=== PATIENT | male | born 1990 | race Caucasian/White ===

== ENCOUNTER 2021-04-09 07:18 | Emergency (ER) | payer MEDICAID, SELFPAY ==
[2021-04-09 07:25] VITALS: BP 136/81; PULSE 70; RESP 18; TEMP 36.8; O2SAT 99; BMI 31.8
--- NOTE | 2021-04-09 07:41 | ED_ITS ---
HPI - General Adult General: Chief complaint: General Medical Stated complaint: Swelling in eye, gum pain Time Seen by Provider: 04/09/21 07:19 History of Present Illness: HPI narrative: Patient is a 30-year-old male who comes to the ED with dental pain and swelling. Symptoms have been going on for the past couple days. He has some dental pain that he describes as mild on the left lower jaw around tooth #17. He has some swelling in his face that is also went up into his left periorbital region. Denies any trouble swallowing or breathing. He does not currently have a dentist but is calling around and trying to get an appointment set up. Associated symptoms: Deny chest pain, dyspnea, headache(s), nausea, rash, palpitations or vomiting Review of Systems Const: Denies: fever(s), chills or fatigue Eyes: Denies: change in vision or eye discomfort ENMT: Reports: dental pain; Denies: throat pain, odynophagia, nasal discharge or nasal congestion Card: Denies: chest pain, palpitations, edema, swelling of feet/ankles, dyspnea on exertion or orthopnea Resp: Denies: dyspnea, productive cough or non-productive cough GI: Denies: abdominal pain, nausea, vomiting, diarrhea, constipation or hemat ochezia : Denies: flank pain, difficulty urinating, dysuria or hematuria Musc: Denies: neck pain, back pain or extremity swelling Skin/Breast: Denies: rash or new lesions Neuro: Denies: headache(s), numbness in extremities or weakness in extremities Physical Exam Const: COMMON NORMALS: no acute distress, patient oriented x3 and alert GENERAL APPEARANCE: cooperative and comfortable HENMT: COMMON NORMALS: normocephalic HEAD & SCALP: normocephalic MOUTH: Normal oral and palatal mucosa present TEETH & GINGIVA: Yes caries and Yes gingiva abnormal edematous (Gingival edema around tooth #17) THROAT: posterior oropharynx normal and uvula midline Eye: PERIORBITAL: periorbital findings abnormal positive left periorbital swelling Neck/C-Spine: COMMON NORMALS: supple GENERAL: Yes normal visual inspection Resp: COMMON NORMALS: normal respiratory effort, No retractions, No use of accessory muscles and clear to auscultation bilaterally AUSCULTATION: clear to auscultation bilaterally Cardio: COMMON NORMALS: regular rate, regular rhythm, S1 normal heart sound present, S2 normal heart sound present, No gallops present (Cardio), No clicks present (Cardio), No murmurs present (Cardio) and Peripheral pulses 2+ throughout RATE: regular rate RHYTHM: regular rhythm HEART SOUNDS: S1 normal heart sound present and S2 normal heart sound present PERIPHERAL PULSES: Peripheral pulses 2+ throughout GI: COMMON NORMALS: Normal to inspection, nondistended, normoactive bowel sounds present, Soft to palpation, non-tender and no masses PALPATION: Yes Soft to palpation : COMMON NORMALS: Yes no CVA tenderness BLADDER/KIDNEY EXAM: Yes no CVA tenderness Back/Pelvis: COMMON NORMALS: no CVA tenderness Extremity: COMMON NORMALS: normal to inspection Neuro: COMMON NORMALS: patient oriented x3 and moves all extremities SENSORIUM/ORIENTATION: Yes alert Skin: GENERAL SKIN EXAM: dry skin Course Vital Signs: Vital signs: Vital Signs Temperature 98.2 F 04/09/21 07:25 Pulse Rate 70 04/09/21 07:25 Respiratory Rate 18 04/09/21 07:25 Blood Pressure 136/81 04/09/21 07:25 Pulse Oximetry 99 04/09/21 07:25 MDM - General Adult MDM Narrative: Medical decision making narrative: Patient is a 30-year-old male comes to the ED with dental pain and swelling. He also has some left facial swelling. Vitals are stable. His pain is mild. Patient has some dental caries around tooth #17 with some associated gingival edema. Patient was discharged home with a prescription for clindamycin and a Medrol Dosepak to help with the swelling. Contact the dentist set up an appointment with them for further evaluation. Return to ED precautions given. Patient understood agree with plan. Discharge Plan Discharge Patient Disposition: Home Clinical Impression: Dental caries Condition: Stable Prescriptions: New clindamycin HCl 150 mg capsule 300 mg PO QID 7 Days Qty: 56 RF: 0 Medrol (Ham) 4 mg tablets,dose pack See Rx Instructions .ROUTE .COMPLEX Qty: 21 RF: 0 Discharge Orders: Discharge ED (Routine); Ordered 04/09/21 Ordered By: Carlos Moraes Discharge Diet: Regular Discharge Activity: Resume usual activity Patient Instructions: Dental Caries (ED) Activity Restrictions/Additional Instructions: Contact your dentist and set up an appoint with them for further evaluation. take medications as prescribed. Start taking steroid Dosepak tomorrow, but start antibiotic today. Return to the ER or your medical provider if condition worsens. Please read and understand discharge instructions. Thank you for choosing [facility] [place] for your healthcare needs today. Seven tiwari realize this is an emergency room and that we are providing you with a medical screening exam and this may not be complete and all inclusive of all the testing and or work up that you may need to determine your ailment or severity of your illness. It is very important that you follow up as instructed or that you return to the Emergency Department should you have concerns or if your condition changes or worsens in any way. Coding Level of Care Code ED Employment Assistant for Shirin Johns Exam Comprehensive
[2021-04-09] MEDS: dexamethasone 10 mg/mL INJ IM (08:02)
== END 2021-04-09 08:09 | disposition home or self-care (01) ==
PROVIDERS: Emergency Provider Physician Assistant
DX: K02.9 Dental caries, unspecified (principal)
CPT/HCPCS: 96372; 99283; J1100

== ENCOUNTER 2021-11-30 15:27 | Emergency (ER) | payer MEDICAID, SELFPAY ==
[2021-11-30 15:51] VITALS: BP 136/78; PULSE 71; RESP 18; TEMP 36.8; O2SAT 98; BMI 34.2
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
[2021-11-30] MEDS: acetaminophen 500 mg Tablet PO (16:15)
[2021-11-30] MEDS: tetanus-dipt-pertussis 0.5 mL SDV IM (16:17)
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
[2021-11-30] MEDS: lidocaine 1% INJ 20 mL 5 ML INJECTION (16:49)
== END 2021-11-30 18:02 | disposition home or self-care (01) ==
PROVIDERS: Emergency Provider Emergency Medicine; PCP Family Medicine
DX: S01.01XA Laceration without foreign body of scalp, initial encounter (principal); R51.9 Headache, unspecified; F17.210 Nicotine dependence, cigarettes, uncomplicated; W20.8XXA Other cause of strike by thrown, projected or falling object, initial encounter; Z23 Encounter for immunization
CPT/HCPCS: 12002; 70450; 90471; 90715; 99283

== ENCOUNTER 2021-12-10 21:31 | Emergency (ER) | payer MEDICAID, SELFPAY ==
--- NOTE | 2021-12-10 21:37 | W.ED.GENADLT ---
[facility] - General Adult General: Stated complaint: needs jesse removed Time Seen by Provider: 12/10/21 21:33 Source: patient Mode of arrival: ambulatory Limitations: no limitations History of Present Illness: 31-year-old male who had jesse placed 10 days ago to his scalp he had a laceration to his scalp required for staple he states been doing well the wound is healed he is here for staple removal he denies any headache denies any worsening proving factors. Denies any drainage from the site or fevers Associated symptoms: Reports headache(s); Deny chest pain or dyspnea Review of Systems Const: Denies: fever(s) Eyes: Denies: blurry vision or eye discomfort ENMT: Denies: mouth pain Card: Denies: chest pain Resp: Denies: dyspnea GI: Denies: abdominal pain Musc: Denies: neck pain or back pain Skin/Breast: Denies: pruritus or erythema Neuro: Reports: headache(s) Psych: Denies: depression Tayo/Lymph: Denies: easy bruising PFSH ED PFSH: Surgical History (Updated 11/30/21 @ 16:25 by Irene Felton MD) Vasectomy status Social History (Updated 11/30/21 @ 16:25 by Irene Felton MD) Smoking and tobacco status: current every day smoker Alcohol intake: never Physical Exam Const: COMMON NORMALS: no acute distress, patient oriented x3 and healthy appearing HENMT: COMMON NORMALS: normocephalic; head/scalp not atraumatic (4 jesse to scalp wound healed) HEAD & SCALP: normocephalic; not atraumatic (4 jesse to scalp wound healed) Eye: COMMON NORMALS: conjunctivae normal CONJUNCTIVA: Yes conjunctivae normal Neck/C-Spine: COMMON NORMALS: supple Chest: COMMONS NORMALS: normal inspection of the chest Resp: COMMON NORMALS: normal respiratory effort Cardio: COMMON NORMALS: regular rate RATE: regular rate Extremity: COMMON NORMALS: normal to inspection Neuro: COMMON NORMALS: patient oriented x3 Psych: COMMON NORMALS: mental status grossly normal [facility] - General Adult Medical Decision Making Patient presents here for staple removal 4 jesse removed from the scalp wound is healing well clean dry and intact stable for discharge Discharge Plan Discharge Patient Disposition: Home Clinical Impression: Removal of jesse Condition: Stable Prescriptions: No Action Medrol (Ham) 4 mg tablets,dose pack See Rx Instructions .ROUTE .COMPLEX Qty: 21 0RF Rx Instructions: orally per package directions Discharge Orders: Discharge ED (Routine); Ordered 12/10/21 Ordered By: Demetrius Gallego Referrals: Sally Sanchez DO [Primary Care Provider] - Discharge Diet: Advance as tolerated Discharge Activity: Resume usual activity Patient Instructions: Laceration (ED) Coding Level of Care Code ED Technical Administrator for Shirin Johns
[2021-12-10 21:55] VITALS: BP 120/87; PULSE 78; RESP 18; TEMP 36.7; O2SAT 98; BMI 33.5
== END 2021-12-10 22:00 | disposition home or self-care (01) ==
PROVIDERS: Emergency Provider Emergency Medicine; PCP Family Medicine
DX: Z48.02 Encounter for removal of sutures (principal)

== ENCOUNTER 2022-01-03 09:19 | Day surgery (SDC) | payer MEDICAID, SELFPAY ==
[2022-01-03] VITALS (13 sets, daily range): BP systolic 108–139; BP diastolic 56–83; PULSE 62–87; RESP 12–23; TEMP 36.7–37.1; O2SAT 94–99; BMI 34.2
--- NOTE | 2022-01-03 09:40 | CT_ITS ---
WS: [id number] CT ABDOMEN AND PELVIS WITH CONTRAST HISTORY: RLQ abd pain TECHNIQUE: Imaging performed of the abdomen and pelvis with IV contrast. Single phase imaging of the abdomen. Coronal and sagittal reformats are submitted. All CT scans at [facility] use at [facility] [facility] one of these dose optimization techniques: automated exposure control; mA and/or kV adjustment per patient size (includes targeted exams where dose is matched to clinical indication); or iterative re construction. IV CONTRAST: Omnipaque 300; 95 mL IV. Oral contrast: No DLP: 1809.0 mGy.cm COMPARISON: None available. Lower thorax: Lung bases are clear. Heart is normal size. No hiatal hernia. Liver/biliary system: Normal size with no intrahepatic dilatation. Gallbladder: Normal. No gallstones or wall thickening. No pericholecystic fluid. Pancreas: Normal size pancreas and pancreatic duct. No adjacent inflammation. Spleen: Normal size spleen. No mass or infarct. Adrenal glands: Normal. Right kidney: Normal. Left kidney: Normal. Aorta: Normal. Lymphadenopathy: None. Free fluid: None. GI tract: Normally distended stomach with fluid. No small bowel obstruction. The appendix is identifi ed and normal caliber. Normal caliber but top normal at 6 mm. No significant amount of adjacent infla mmation. There is very minimal appendiceal wall enhancement. No air within the appendix. There are sc attered diverticula throughout the colon. No acute inflammation. Abdominal wall: Unremarkable abdominal wall. No hernia. Pelvis: No free fluid or adenopathy within the pelvis. Bones: Unremarkable. CT/CT abdomen pelvis w con* [id number] IMPRESSION: 1. Appendix measures top normal size but there is very minimal enhancement wit hin the wall of the appendix suggests this could be a very early appendicitis. Impossible to confirm acute appendicitis on this examination with certainty. 2. Scattered diverticula throughout the colon but no evidence for acute divert iculitis by imaging. 3. No renal obstruction. Notified Timothy Wise DO at 01/03/2022 11:07 AM.
--- NOTE | 2022-01-03 09:53 | ED_ITS ---
HPI - Abdominal Pain General: Chief Complaint: Abdominal Pain Stated Complaint: Rt side abdominal pain, Vomiting Time Seen by Provider: 01/03/22 09:22 Source: patient Mode of arrival: ambulatory Limitations: no limitations History of Present Illness: 31-year-old male presents emergency room with right lower quadrant abdominal pain began last night in the evening with mild he was able to go to bed but this morning woke up and had progressed and is quite severe. Any movement seems to make it worse he has loss of appetite subjective low-grade fever denies hematochezia melena hematemesis coffee-ground emesis no dysuria urgency or frequency. No hematuria. MD elicited complaint: abdominal pain Pertinent past history: none Onset (ago): minute(s) Pain Consistency: constant Location: RLQ Severity: severe Quality: stabbing Radiation: none Migration to: no migration Relieving factors: rest Associated Symptoms: Reports nausea and poor appetite; Denies anorexia, belching, bloating, change in bowel habits, change in stool character, chills, coffee ground emesis, constipation, GI cramping, diarrhea, dyspepsia, dysuria, excessive flatus, fever(s), heartburn, hematochezia, hematuria, hematemesis, fecal incontinence, loose stools, melena, syncope and vomiting Review of Systems Const: Denies: fever(s) or chills ENMT: Denies: throat pain, ear or mastoid pain, nasal discharge or nasal clifford estion Card: Denies: chest pain, palpitations, irregular heart rhythm, edema or syncope Resp: Denies: dyspnea, productive cough or non-productive cough GI: Reports: abdominal pain and nausea; Denies: vomiting, hematemesis, coffee ground emesis, heartburn, diarrhea, constipation, bloating, GI cramping, belching, excessive flatus, fecal incontinence, change in bowel habits, change in stool character, hematochezia or melena : Denies: dysuria or hematuria Skin/Breast: Denies: rash or pruritus PFS ED PFSH: Medical History Anxiety and depression Surgical History H/O vasectomy S/P laparoscopic appendectomy (01/03/22) Social History Smoking and tobacco status: current every day smoker Alcohol intake: never Physical Exam Const: GENERAL APPEARANCE: cooperative and comfortable ORIENTATION/CONSCIOUSNESS: Yes awake, Yes oriented to person, Yes oriented to place and Yes oriented to time HENMT: COMMON NORMALS: normocephalic, atraumatic and hearing grossly normal bilaterally HEAD & SCALP: normocephalic and atraumatic Resp: COMMON NORMALS: normal respiratory effort, No retractions, No use of accessory muscles and clear to auscultation bilaterally AUSCULTATION: clear to auscultation bilaterally Cardio: COMMON NORMALS: regular rate, regular rhythm and No murmurs present (Cardio) RATE: regular rate RHYTHM: regular rhythm GI: AUSCULTATION: Yes normoactive bowel sounds PALPATION: Yes Guarding due to palpation present (GI) in the RLQ, Yes Rigid due to palpation Location: RLQ and No Hernia present Extremity: COMMON NORMALS: normal to inspection, capillary refill normal, no clubbing, cyanosis or edema, no calf tenderness and no pedal edema Neuro: SENSORIUM/ORIENTATION: Yes oriented to person, Yes oriented to place and Yes oriented to time Skin: COMMON NORMALS: no rashes or lesions noted GENERAL SKIN EXAM: no rashes or lesions noted Course Vital Signs: Vital signs: Vital Signs Temperature 98.3 F 01/03/22 18:00 Pulse Rate 71 01/03/22 18:00 Respiratory Rate 18 01/03/22 18:00 Blood Pressure 136/77 01/03/22 18:00 Pulse Oximetry 98 01/03/22 18:00 MDM - Abdominal Pain Medical Decision Making Acute appendicitis on physical exam, suspicious findings by CT. Discussed Dr. Ch you will take patient to the OR. Proceeding directly from the emergency room to the OR. Medical Records I reviewed the patient's medical records. Lab Data I reviewed the patient's lab results. : 01/03/22 09:45 01/03/22 09:45 Labs/Radiology: Radiology Impressions Abdomen/Pelvis CT 01/03/22 09:40 IMPRESSION: 1. Appendix measures top normal size but there is very minimal enhancement within the wall of the appendix suggests this could be a very early appendicitis. Impossible to confirm acute appendicitis on this examination with certainty. 2. Scattered diverticula throughout the colon but no evidence for acute diverticulitis by imaging. 3. No renal obstruction. Notified Timothy Wise DO at 01/03/2022 11:07 AM. Laboratory Results WBC 15.1 10^3/uL (4.0-10.0) H 01/03/22 09:45 RBC 4.67 10^6/uL (4.1-5.3) 01/03/22 09:45 Hgb 15.4 g/dL (11.7-16.6) 01/03/22 09:45 Hct 44.4 % (42.0-52.0) 01/03/22 09:45 MCV 95.1 fl (80-94) H 01/03/22 09:45 MCH 33.0 pg (28.0-34.0) 01/03/22 09:45 MCHC 34.7 g/dL (30.0-36.0) 01/03/22 09:45 RDW 12.6 % (12.1-15.1) 01/03/22 09:45 Plt Count 158 10^3/cmm (130-400) 01/03/22 09:45 MPV 13.5 fL (7.4-10.4) H 01/03/22 09:45 Neut % (Auto) 88.6 % 01/03/22 09:45 Lymph % (Auto) 5.0 % 01/03/22 09:45 [place] % (Auto) 5.8 % 01/03/22 09:45 Eos % (Auto) 0.0 % 01/03/22 09:45 Baso % (Auto) 0.2 % 01/03/22 09:45 Neut # (Auto) 13.38 10^3/uL (1.8-7.7) H 01/03/22 09:45 Lymph # (Auto) 0.8 10^3/uL (0.8-4.8) 01/03/22 09:45 [place] # (Auto) 0.9 10^3/uL (0.2-0.9) 01/03/22 09:45 Eos # (Auto) 0.0 10^3/uL (0.0-0.8) 01/03/22 09:45 Baso # (Auto) 0.0 10^3/uL (0.0-0.1) 01/03/22 09:45 Nucleated RBC % (auto) 0 % 01/03/22 09:45 Nucleated RBCs # 0.0 /100WBC 01/03/22 09:45 Sodium 135 mmol/L (136-145) L 01/03/22 09:45 Potassium 4.2 mmol/L (3.5-5.1) 01/03/22 09:45 Chloride 102 mmol/L (98-107) 01/03/22 09:45 Carbon Dioxide 22 mmol/L (22-29) 01/03/22 09:45 Anion Gap 15.2 (5-19) 01/03/22 09:45 BUN 13 mg/dL (6-20) 01/03/22 09:45 Creatinine 0.9 mg/dL (0.7-1.2) 01/03/22 09:45 GFR Calculation 98.4 mL/min (90-130) 01/03/22 09:45 Glucose 124 mg/dL (65-115) H 01/03/22 09:45 Calculated Osmolality 282 mOsm/kg (285-295) L 01/03/22 09:45 Lactic Acid 1.3 mmol/L (0.5-2.2) 01/03/22 09:45 Calcium 8.9 mg/dL (8.5-10.5) 01/03/22 09:45 Total Bilirubin 0.5 mg/dL (0.15-1.2) 01/03/22 09:45 AST 19 U/L (0-40) 01/03/22 09:45 ALT 33 U/L (0-41) 01/03/22 09:45 Alkaline Phosphatase 69 IU/L (40-130) 01/03/22 09:45 Total Protein 7.1 g/dL (6.6-8.7) 01/03/22 09:45 Albumin 4.9 g/dL (3.5-5.2) 01/03/22 09:45 Globulin 2.2 g/dL (1.3-4.6) 01/03/22 09:45 Lipase 36 U/L (13-60) 01/03/22 09:45 Urine Color Yellow (Yellow) 01/03/22 11:10 Urine Appearance Clear (CLEAR) 01/03/22 11:10 Urine pH 7 (5-7) 01/03/22 11:10 Ur Specific [place] 1.005 (1.005-1.030) 01/03/22 11:10 Urine Protein Trace (Negative) 01/03/22 11:10 Urine Glucose (UA) Norm (Normal) 01/03/22 11:10 Urine Ketones 1+ (Negative) H 01/03/22 11:10 Urine Blood Neg (Negative) 01/03/22 11:10 Urine Nitrate Negative (Negative) 01/03/22 11:10 Urine Bilirubin Neg (Negative) 01/03/22 11:10 Urine Urobilinogen 1 mg/dL (Negative) H 01/03/22 11:10 Ur Leukocyte Esterase Negative (Negative) 01/03/22 11:10 Urine RBC 0-4 /hpf (0-2) H 01/03/22 11:10 Urine WBC 0-4 /hpf (0-5) H 01/03/22 11:10 Ur Squamous Epith Cells 0-4 /hpf (0-5) H 01/03/22 11:10 Amorphous Sediment Not Reportable 01/03/22 11:10 Urine Bacteria None /hpf (NONE) 01/03/22 11:10 Urine Mucus 1+ /hpf 01/03/22 11:10 Discharge Plan Discharge Patient Disposition: Admitted As Inpatient Clinical Impression: Acute appendicitis Condition: Stable Coding Level of Care Code ED Quality Assurance Group Leader for Shirin Fwd Exam Comprehensive
[2022-01-03] MEDS: ondansetron 2 mg/ML SDV 2 mL 4 MG IVP ×2 (09:58→12:35)
--- NOTE | 2022-01-03 09:58 | PC.NURSE ---
LR fluids not given to patient due to not having any, called supply, we are currently out of stock. Dr. Wise notified.
[2022-01-03 10:19] LABS: Basophils % 0.2 %; Hematocrit 44.4 % (42.0-52.0); Hemoglobin 15.4 g/dL (11.7-16.6); Lymphocytes # 0.8 10^3/uL (0.8-4.8); Mean Corpuscular HGB Conc 34.7 g/dL (30.0-36.0); Mean Corpuscular Volume 95.1 fl (80-94); Monocytes # 0.9 10^3/uL (0.2-0.9); Monocytes % 5.8 %; Neutrophils # 13.38 10^3/uL (1.8-7.7); Neutrophils % 88.6 %; Nucleated Red Blood Cells % 0 %; Platelet Count 158 10^3/cmm (130-400); Red Blood Count 4.67 10^6/uL (4.1-5.3); Red Cell Distribution Width 12.6 % (12.1-15.1); White Blood Count 15.1 10^3/uL (4.0-10.0)
[2022-01-03] MEDS: iohexol 300 mg/mL 100 mL Btl IV (10:24)
[2022-01-03 10:38] LABS: Mean Platelet Volume 13.5 fL (7.4-10.4)
[2022-01-03 10:46] LABS: Lactic Sepsis W/Reflex 1.3 mmol/L (0.5-2.2)
[2022-01-03 10:47] LABS: Alanine Aminotransferase 33 U/L (0-41); Albumin Level 4.9 g/dL (3.5-5.2); Alkaline Phosphatase 69 IU/L (40-130); Anion Gap 15.2 (5-19); Aspartate Amino Transferase 19 U/L (0-40); Blood Urea Nitrogen 13 mg/dL (6-20); Calcium 8.9 mg/dL (8.5-10.5); Carbon Dioxide 22 mmol/L (22-29); Chloride 102 mmol/L (98-107); Creatinine Clr Calc Pharmacy 150.7699; Globulin 2.2 g/dL (1.3-4.6); Glomerular Filtration Rate 98.4 mL/min (90-130); Glucose 124 mg/dL (65-115); Lipase 36 U/L (13-60); Osmolality Calculated 282 mOsm/kg (285-295); Potassium 4.2 mmol/L (3.5-5.1); Sodium 135 mmol/L (136-145); Total Bilirubin 0.5 mg/dL (0.15-1.2); Total Protein 7.1 g/dL (6.6-8.7)
[2022-01-03] MEDS: piperacillin-tazobactam 3.375 GM in sodium chloride 0.9% (plus) 50 ML IV (11:11)
[2022-01-03 12:20] LABS: Urine Appearance Clear (CLEAR); Urine Color Yellow (Yellow)
[2022-01-03 12:21] LABS: Add Urine Microscopic? YES; Bilirubin Urine Neg (Negative); Blood Urine Neg (Negative); Glucose Urine UA Norm (Normal); Ketones Urine 1+ (Negative); Leukocyte Esterase Urine Negative (Negative); Nitrate Urine Negative (Negative); Protein Urine Trace (Negative); Specific Gravity, Urine 1.005 (1.005-1.030); Urobilinogen Urine 1 mg/dL (Negative); pH Urine 7 (5-7)
[2022-01-03 12:23] LABS: Add Urine Culture? No; Mucus Urine 1+ /hpf; RBC Urine 0-4 /hpf (0-2); Squamous Epithelial Cell Urine 0-4 /hpf (0-5); WBC Urine 0-4 /hpf (0-5)
[2022-01-03] MEDS: morphine 4 mg/mL SDV 1 mL IVP (12:35)
--- NOTE | 2022-01-03 13:01 | P.HP_ITS ---
Providers/Chief Complaint Primary Care Provider: Sally Sanchez DO Chief Complaint: Rt side abdominal pain, Vomiting History of Present Illness Marcus Hart is a 31 year old male who presented to the ER today with complaints of severe abdominal pain since last night. Patient also had nausea and vomiting. Patient states the pain was initially more in the mid abdomen and has now localized to the right lower quadrant. He denies any constipation, diarrhea, fevers or chills. No similar episodes in the past. Review of Systems General: Reports: 10 or more systems reviewed and unremarkable except in HPI and below Medications/Allergies Home Medications Medication Instructions Recorded Confirmed Last Taken Type aspirin-acetaminophen 500 mg-325 1 packet PO DAILY PRN 01/03/22 01/03/22 Unknown History mg oral packet citalopram 40 mg tablet 40 mg PO QAM 01/03/22 01/03/22 01/03/22 09:00 History cyclobenzaprine 5 mg tablet 5 mg PO BEDTIME PRN 01/03/22 01/03/22 Unknown Hist ory diclofenac sodium 1 % topical gel 1 g TOPICAL QID PRN 01/03/22 01/03/22 Unknown History ibuprofen 800 mg tablet 800 mg PO Q8H PRN 01/03/22 01/03/22 Unknown History Allergies Allergy/AdvReac Type Severity Reaction Status Date / Time No Known Allergies Allergy Verified 01/03/22 09:44 PFSH Acute PFSH: Medical History Anxiety and depression Surgical History H/O vasectomy Social History Smoking and tobacco status: current every day smoker Alcohol intake: never Vitals/I&O/Wt Last Vital Signs Temp 98.8 F 01/03/22 09:21 Pulse 62 01/03/22 11:00 Resp 20 H 01/03/22 12:35 BP 135/83 01/03/22 11:32 Pulse Ox 98 01/03/22 11:32 Weight last 48 hrs Weight 245 lb Physical Exam Narrative: HEENT: Normocephalic Eye: Sclera /conjunctiva normal Abdomen: Soft to palpation, tender right lower quadrant, voluntary guarding, no rigidity Neurological: Oriented to place person and time Skin: Intact, no lesions appreciated on gross exam Data : 01/03/22 09:45 01/03/22 09:45 A&P Assessment and plan (1) Acute appendicitis: 31-year-old male who presents with right lower quadrant pain since last night associate with nausea and vomiting. He is exquisitely tender in the right lower quadrant on palpation. His WBC is [address] scan shows findings suggestive of early acute appendicitis. Discussed options with the patient Plan for laparoscopic possible open appendectomy Procedure, risks, benefits and alternatives have been discussed with the patient who wishes to proceed with surgery. Status: Acute Attestations Medical Necessity Statement*: Acute appendicitis Coding Level of Care Code Acute Control Chemist for [facility] Nat Diagnoses Acute appendicitis K35.80
--- NOTE | 2022-01-03 13:02 | NUR.SHIFT ---
Patient in gown at this time
--- NOTE | 2022-01-03 14:13 | ANES.PREANE2 ---
Pre-Anesthetic Assessment Height/Weight: Height 1.8 m Weight 111.13 kg Temp Pulse Resp BP Pulse Ox 98.6 F 64 18 134/68 95 01/03/22 13:30 01/03/22 13:30 01/03/22 13:30 01/03/22 13:30 01/03/22 13:30 Preop Diagnosis: Acute appendicitis Operation Date: 01/03/22 15:20 Proposed Procedures p Laparoscopic Appendectomy possible open(Not Applicable) - Harley Ch MD Familial anesthetic complications: None Was Beta José taken within 24 hours: N/A Was Clonidine taken within 24 hours: N/A Last intake: > 8 hrs Social Tobacco and No alcohol Exam alert, oriented x 3, clear to auscultation bilaterally and regular rate & rhythm Airway Mallampati: Class I Dentition: chipped and other (very poor dentition per patient - I only have 10 good teeth ) Pulmonary None reported CV/HEM None reported None reported Hepatic None reported GI None reported Metabolic None reported Musc/skel None reported Neuropsych Anxiety Anesthetic Plan ASA status: 2 Anesthesia: General Risk of > 500 ml blood loss (7ml/kg in children): No Medications/Allergies Home Medications Medication Instructions Recorded Confirmed Last Taken Type aspirin-acetaminophen 500 mg-325 1 packet PO DAILY PRN 01/03/22 01/03/22 Unknown History mg oral packet citalopram 40 mg tablet 40 mg PO QAM 01/03/22 01/03/22 01/03/22 09:00 History cyclobenzaprine 5 mg tablet 5 mg PO BEDTIME PRN 01/03/22 01/03/22 Unknown History diclofenac sodium 1 % topical gel 1 g TOPICAL QID PRN 01/03/22 01/03/22 Unknown History ibuprofen 800 mg tablet 800 mg PO Q8H PRN 01/03/22 01/03/22 Unknown History Allergies Allergy/AdvReac Type Severity Reaction Status Date / Time No Known Allergies Allergy Verified 01/03/22 09:44 [facility] Anesthesia Medical History Anxiety and depression Surgical History H/O vasectomy Social History Smoking and tobacco status: current every day smoker Alcohol intake: never Data Anesthesia : 01/03/22 09:45 01/03/22 09:45 Short CBC 01/03/22 Range/Units 09:45 WBC 15.1 H (4.0-10.0) 10^3/uL Hgb 15.4 (11.7-16.6) g/dL Hct 44.4 (42.0-52.0) % MCV 95.1 H (80-94) fl Plt Count 158 (130-400) 10^3/cmm Neut % (Auto) 88.6 % Neut # (Auto) 13.38 H (1.8-7.7) 10^3/uL BMP 01/03/22 09:45 Sodium 135 L Potassium 4.2 Chloride 102 Carbon Dioxide 22 BUN 13 Creatinine 0.9 Glucose 124 H Calcium 8.9 Liver Function 01/03/22 Range/Units 09:45 Total Bilirubin 0.5 (0.15-1.2) mg/dL AST 19 (0-40) U/L ALT 33 (0-41) U/L Alkaline Phosphatase 69 (40-130) IU/L Albumin 4.9 (3.5-5.2) g/dL Urine 01/03/22 Range/Units 11:10 Urine Color Yellow (Yellow) Urine Appearance Clear (CLEAR) Urine pH 7 (5-7) Ur Specific [place] 1.005 (1.005-1.030) Urine Protein Trace (Negative) Urine Glucose (UA) Norm (Normal) Urine Ketones 1+ H (Negative) Urine Nitrate Negative (Negative) Urine Bilirubin Neg (Negative) Ur Leukocyte Esterase Negative (Negative) Urine RBC 0-4 H (0-2) /hpf Urine WBC 0-4 H (0-5) /hpf Cardiac Studies: No Data to Display
[2022-01-03] MEDS: sodium chloride 0.9% 1,000 ML 30 ML IV (15:24)
--- NOTE | 2022-01-03 15:58 | P.OP_ITS ---
Operative Report Date of procedure: January 03, 2022 Pre-op diagnosis: Acute appendicitis Post-op diagnosis: same Procedure done: Laparoscopic appendectomy Specimens removed/disposition: Appendix Surgeon: Harley Ch Anesthesia: General Condition: stable Disposition: PACU Procedure: The patient was taken to the Operating Room and intubated under general anesthesia. IV antibiotic had been administered in the emergency room. Using a 15 blade, a 1-cm infraumbilical incision was made and using open Brock technique, the peritoneal cavity was entered. A 12mm port with balloon was p laced and 15 mm of pneumoperitoneum was created and 10-mm 30 degree scope was introduced. Two separate 5mm ports were placed in the suprapubic and left lower quadrant under direct visualization. The appendix was noted in the right lower quadrant and appeared acutely inflamed.. Using [place] forceps, an opening was made in the mesoappendix near the base of the appendix. An Endo MARYA stapler 45mm long 3.5mm blue load was introduced to divide the appendix at it's base. Using electrocautery, the mesoappendix including the appendicular artery was divided. There was no bleeding noted and the staple line appeared intact. The right lower quadrant was irrigated with saline and an EndoCatch bag was introduced to remove the appendix. All three ports were removed under direct visualization and there was no bleeding noted on the port sites. 10 cc of 0.5% Marcaine was infiltrated at the port sites. The fascia at the umbilical port was closed using figure of eight 0-Vicryl sutures and subcutaneous tissue was approximated using 3-0 Vicryl and skin at all 3 port sites was closed using 4-0 Monocryl and Dermabond. The patient was extubated and transferred to recovery room in stable condition.
[2022-01-03] MEDS: HYDROcodone-acetaminophen 5-325 mg Tablet 1 TAB PO (18:00)
== END 2022-01-03 18:08 | disposition home or self-care (01) ==
LOC: ER 12:38 → OR 13:06
PROVIDERS: Emergency Provider Family Medicine; PCP Family Medicine; Visit Provider Surgery
PROC: 0DTJ4ZZ Resection of Appendix, Percutaneous Endoscopic Approach (ICD-10-PCS; CPT 44970; principal; 2022-01-03 15:00)
DX: K35.33 Acute appendicitis with perforation, localized peritonitis, and gangrene, with abscess (principal); F17.210 Nicotine dependence, cigarettes, uncomplicated
CPT/HCPCS: 44970; 74177; 80053; 81001; 83605; 83690; 85025; 88304; A7015; J2250; J2270; J2405; J2543; J2704; J3010; J3490; J7030; Q9967

== ENCOUNTER → 2022-01-14 10:43 | Outpatient (BNVA) | payer MEDICAID, SELFPAY | PROVIDERS: PCP Family Medicine; Visit Provider Surgery | DX: Z98.890 Other specified postprocedural states (principal); Z90.49 Acquired absence of other specified parts of digestive tract ==

== ENCOUNTER 2022-04-21 13:17 | Emergency (ER) | payer MEDICAID, SELFPAY ==
[2022-04-21 13:34] VITALS: BP 139/78; PULSE 60; RESP 18; TEMP 36.6; O2SAT 98; BMI 29.9
--- NOTE | 2022-04-21 13:37 | XRR_ITS ---
PROCEDURE INFORMATION: Exam: XR Left Ankle Exam date and time: 04/21/2022 2:04 PM Age: 31 years old Clinical indication: Injury or trauma; Other: Not specified; Blunt trauma; Ankle; Left TECHNIQUE: Imaging protocol: Radiologic exam of the Left ankle. Views: 1 or 2 views. COMPARISON: No relevant prior studies available. FINDINGS: Bones/joints: Normal. Soft tissues: Normal. XR/XR ankle LT 2V [id number] IMPRESSION: No acute findings.
[2022-04-21 14:36] VITALS: BP 139/78; PULSE 60; RESP 18; TEMP 36.6; O2SAT 98
--- NOTE | 2022-04-21 14:43 | W.ED.LOWEXIN ---
HPI - Extremity Injury (Lower) General: Chief Complaint: Extremity Injury, Lower Stated Complaint: Left foot pain Time Seen by Provider: 04/21/22 14:33 Source: patient Mode of arrival: ambulatory Limitations: no limitations History of Present Illness: Patient is a 31-year-old male who presents to ED today with a complaint of a left ankle injury that he sustained earlier today after stepping in a hole and twisting it. Patient states he is ambulatory with a hobble on the extremity. He has no other injuries or complaints at this time. complaint: ankle injury Onset (ago): hour(s) Review of Systems Musc: Reports: joint pain and joint swelling; Denies: neck pain, back pain, extremity pain or extremity swelling Neuro: Denies: numbness in extremities or sensory changes PFSH ED PFSH: Medical History Anxiety and depression COVID-19 Surgical History H/O vasectomy S/P laparoscopic appendectomy (01/03/22) Family History Other Diabetes Hypertension Social History Smoking and tobacco status: current every day smoker Alcohol intake: never Physical Exam Const: COMMON NORMALS: no acute distress, patient oriented x3, no limitations, alert and well nourished Extremity: LEFT LOWER EXTREMITY: Yes ankle joint (TTP and mild swelling noted over lateral malleolus) Left ankle: Yes neurovascular exam (normal) Neuro: COMMON NORMALS: patient oriented x3, moves all extremities, no focal motor deficits and no sensory deficits noted SENSORIUM/ORIENTATION: Yes alert Skin: TRAUMA: no lacerations or abrasions Course Vital Signs: Vital signs: Vital Signs Temperature 98 F 04/21/22 14:36 Pulse Rate 60 04/21/22 14:36 Respiratory Rate 18 04/21/22 14:36 Blood Pressure 139/78 04/21/22 14:36 Pulse Oximetry 98 04/21/22 14:36 Oxygen Delivery Me thod 04/21/22 14:36 MDM - Extremity Injury (Lower) Medical Decision Making XRs negative. Declines crutches. Will DIOGO wrap here. Weight bearing as tolerated. RICE therapy. F/u with PCP in 1-2 weeks if ankle does not improve/worsens. Lab Data Radiology Impressions Ankle X-Ray 04/21/22 13:37 IMPRESSION: No acute findings. Discharge Plan Discharge Patient Disposition: Home Clinical Impression: Left ankle sprain Qualifiers: Encounter type: initial encounter Involved ligament of ankle: unspecified ligament Qualified Code(s): S93.402A - Sprain of unspecified ligament of left ankle, initial encounter Condition: Stable Prescriptions: No Action citalopram 40 mg tablet 40 mg PO QAM ibuprofen 800 mg tablet 800 mg PO Q8H PRN (Reason: Pain) cyclobenzaprine 5 mg tablet 5 mg PO BEDTIME PRN (Reason: Muscle Spasm) aspirin-acetaminophen 500-325 mg Packet 1 packet PO DAILY PRN (Reason: Pain) diclofenac sodium 1 % gel 1 g TOPICAL QID PRN (Reason: Pain) hydrocodone-acetaminophen 5-325 mg tablet 1 tab PO Q6H PRN (Reason: pain) Qty: 20 0RF Colace 100 mg capsule 100 mg PO BID Qty: 30 0RF Discharge Orders: Discharge ED (Routine); Ordered 04/21/22 Ordered By: Marva King Referrals: Sally Sanchez DO [Primary Care Provider] - Patient Instructions: Ankle Sprain (DC), RICE Therapy Coding Level of Care Code ED Fireproof Door Maker for Shirin Johns
== END 2022-04-21 15:16 | disposition home or self-care (01) ==
PROVIDERS: Emergency Provider Physician Assistant; PCP Family Medicine
DX: S93.402A Sprain of unspecified ligament of left ankle, initial encounter (principal); Z79.82 Long term (current) use of aspirin; F17.210 Nicotine dependence, cigarettes, uncomplicated; X50.1XXA Overexertion from prolonged static or awkward postures, initial encounter
CPT/HCPCS: 73600; 99283

== ENCOUNTER 2023-06-04 14:38 | Emergency (ER) | payer MEDICAID, SELFPAY ==
[2023-06-04 14:44] VITALS: BP 134/89; PULSE 89; RESP 14; TEMP 37.4; O2SAT 97; BMI 32.1
--- NOTE | 2023-06-04 15:17 | US_ITS ---
WS: [id number] ULTRASOUND SOFT TISSUES gluteal cleft HISTORY: pilonidal cyst COMPARISON: None available. TECHNIQUE: 2-D and color Doppler imaging is submitted. There is a large complex fluid collection along the upper gluteal cleft. This complex fluid collectio n contains mild peripheral increased vascularity. There is a tract extending superficially. Collecti on extends over a length of at least 1.5 cm x 0.6 cm. IMPRESSION: Complex fluid collection extends in a tract like manner in the superior gluteal cleft region. This is most consistent with a pilonidal cyst or subcutaneous abscess. Complex in appearance.
--- NOTE | 2023-06-04 15:55 | ED_ITS ---
HPI - Skin/Abscess/Foreign Bdy General: Chief complaint: Skin/Abscess/Foreign Body Stated complaint: cyst on back Time Seen by Provider: 06/04/23 14:52 History of Present Illness: Patient is in today for possible pilonidal cyst. Patient reports that he has a cyst for years in the same area and one other time he had to have this drained. He reports that x3 days that has been increasing in pain and swelling. He denies any fever, chills, nausea, vomiting. He did never follow-up with the surgeon in the past because it was not feasible for him to miss work at that time. Associated symptoms: Deny chills, fever(s), nausea or vomiting Review of Systems Const: Denies: fever(s) or chills Card: Denies: chest pain, palpitations or irregular heart rhythm Resp: Denies: dyspnea, productive cough or non-productive cough GI: Denies: abdominal pain, nausea or vomiting : Denies: flank pain, difficulty urinating or dysuria Skin/Breast: Reports: other (Pain and swelling at the gluteal cleft x3 days) PFSH ED PFSH: Medical History Anxiety and depression COVID-19 Surgical History H/O vasectomy S/P laparoscopic appendectomy (01/03/22) Family History Other Diabetes Hypertension Social History Smoking and tobacco status: current every day smoker Alcohol intake: never Substance/Drug Use: never Physical Exam Const: COMMON NORMALS: no acute distress, patient oriented x3 and alert Neck/C-Spine: COMMON NORMALS: no JVD Resp: COMMON NORMALS: normal respiratory effort, No use of accessory muscles and clear to auscultation bilaterally AUSCULTATION: clear to auscultation bilaterally Cardio: COMMON NORMALS: no JVD, regular rate, regular rhythm, S1 normal heart sound present and S2 normal heart sound present RATE: regular rate RHYTHM: regular rhythm HEART SOUNDS: S1 normal heart sound present and S2 normal heart sound present Neuro: COMMON NORMALS: patient oriented x3 SENSORIUM/ORIENTATION: Yes alert Skin: NARRATIVE SKIN EXAM: There is tenderness to palpation at the superior gluteal cleft extending approximately 1-1/2 cm right of midline and 1 and half centimeters left of midline and extending towards the anus. Tenderness starts approximately 1 and half centimeters above the anus extending to the superior gluteal cleft. There is minimal erythema. There is no palpable fluctuance. No oozing or drainage. Course Vital Signs: Vital signs: Vital Signs Temperature 99.4 F 06/04/23 14:44 Pulse Rate 89 06/04/23 14:44 Respiratory Rate 14 06/04/23 14:44 Blood Pressure 134/89 06/04/23 14:44 Pulse Oximetry 97 06/04/23 14:44 Oxygen Delivery Me thod Room Air 06/04/23 14:44 MDM - Skin/Abscess/Foreign Bdy Medicial Decision Making Consider abscess versus pilonidal cyst. Ultrasound does show complex fluid collection approximately 1 and half centimeters consistent with pilonidal cyst superior gluteal cleft. Patient does not have any systemic symptoms and there is no specific area of fluctuance palpated. No incision and drainage done at this time. We will start patient on antibiotic encourage warm compresses. Case management referral to general surgery for further address. Return to the ER as needed for new or worsening symptoms. All radiology interpretation(s) finalized by discharge Discharge Plan Discharge Patient Disposition: Home Clinical Impression: Pilonidal cyst Condition: Stable Prescriptions: New clindamycin HCl 300 mg capsule 300 mg PO TID 7 Days Qty: 21 0RF No Action ibuprofen 200 mg Tablet 400 mg PO Q6H PRN (Reason: Pain) Discharge Orders: Discharge ED (Routine); Ordered 06/04/23 Ordered By: Heaven Leon Referrals: Sally Sanchez DO [Primary Care Provider] - Discharge Diet: Usual diet Discharge Activity: Resume usual activity Patient Instructions: Pilonidal Cyst (ED) Activity Restrictions/Additional Instructions: Take antibiotics as directed. Follow-up with general surgery for further address of pilonidal cyst. Warm moist compresses to the area 3-4 times a day. Return to the ER for new or worsening symptoms. Coding Level of Care Code ED Road Machinery Inspector for Shirin Johns
--- NOTE | 2023-06-07 16:45 | PC.SOCIAL ---
General Surgery Referral message sent to clinic at this time. Clinic to contact patient with appt date/time.
== END 2023-06-04 16:46 | disposition home or self-care (01) ==
PROVIDERS: Emergency Provider Nurse Practitioner Family; PCP Family Medicine
DX: L05.91 Pilonidal cyst without abscess (principal); F17.210 Nicotine dependence, cigarettes, uncomplicated
CPT/HCPCS: 76882; 99284

== ENCOUNTER 2024-12-16 14:35 | Outpatient (CLI) | payer OTHER, SELFPAY ==
--- NOTE | 2024-12-16 14:44 | MR_ITS ---
WS: [id number] MRI BRAIN WITHOUT CONTRAST HISTORY: EPISODIC CLUSTER HEADACHE, NOT INTRACTABLE COMPARISON: None available. TECHNIQUE: Diffusion imaging, multiplanar T1, T2 and FLAIR imaging obtained. No evidence for acute infarct or hemorrhage. Muhammad-white matter differentiation is normal. No remote or acute infarcts are volume loss. Minimal increased T2 signal adjacent to the frontal horn of the LEFT lateral ventricle. There are a few additional scattered centrum semiovale foci. These do appear to be perpendicular to the corpus callosum. No significant abnormality along the optic nerves. Ventricles and extra-axial spaces are normal. No inferior displacement of cerebellar tonsils. The sella turcica and pituitary gland are unremarkable. Dural venous sinuses and [place] demonstrate no abnormality on this unenhanced studies. Paranasal sinuses: Clear. Mastoid air cells: Normal. Calvarium and scalp: Intact. MR/MR head wo con* [id number] IMPRESSION: 1. No acute infarct or mass effect. 2. There are a few scattered T2 and FLAIR signal hyperintensities. Some of the se appear to be perpendicular to the corpus callosum. Evaluate for demyelinatin g disease such as MS. 3. On this MRI brain no abnormality along the optic nerves. No prior infarct.
== END 2024-12-16 14:36 | disposition home or self-care (01) ==
PROVIDERS: PCP Family Medicine; Visit Provider Family Medicine
DX: G44.019 Episodic cluster headache, not intractable (principal); R93.0 Abnormal findings on diagnostic imaging of skull and head, not elsewhere classified
CPT/HCPCS: 70551

== ENCOUNTER 2025-01-27 09:52 | Outpatient (CLI) | payer OTHER, SELFPAY ==
--- NOTE | 2025-01-27 09:55 | US_ITS ---
WS: [id number] RIGHT UPPER QUADRANT ULTRASOUND HISTORY: THROMBOCYTOPENIA COMPARISON: None available. Liver: 15.9 cm in length. Normal size liver and echogenicity. No bile duct dilatation or mass. Portal Vein: Normal hepatopetal flow with monophasic waveform. Gallbladder: Normally distended gallbladder with no stones or wall thickening. CBD: 0.4 cm Pancreas: Normal size and echogenicity. Right kidney: 9.8 cm in length. Normal size and echogenicity. No hydronephrosis or mass. Aorta and IVC: Unremarkable abdominal aorta and IVC. No ascites. US/US abdomen limited [id number] IMPRESSION: Normal right upper quadrant ultrasound.
== END 2025-01-27 09:53 | disposition home or self-care (01) ==
PROVIDERS: PCP Family Medicine; Visit Provider Family Medicine
DX: D69.6 Thrombocytopenia, unspecified (principal)
CPT/HCPCS: 76705